=== PATIENT | male | born 1985 | race American Indian/Alaskan Native ===

== ENCOUNTER 2016-12-19 18:18 | Emergency (ER) | payer OTHER ==
[2016-12-19 18:57] VITALS: BP 130/84; PULSE 65; RESP 18; TEMP 98.6; O2SAT 100
[2016-12-19] MEDS ORDERED: TDAP Vaccine 0.5 mL Syr IM ONE ×2 (19:48→20:27)
--- NOTE | 2016-12-19 20:15 | ED PDOC ---
HPI: General Adult Time Seen by Provider: 12/19/16 19:08 Chief Complaint (Nursing): Abnormal Skin Integrity Chief Complaint (Provider): Abrasions on Left hand History Per: Patient History/Exam Limitations: no limitations Current Symptoms Are (Timing): Still Present Additional Complaint(s): Mario Dickinson is a 31 year old male that presents to the ED with a chief complaint of abrasions to his left hand that he obtained when his hand scraped against a piece of metal while he was picking something up at work. Last tetanus shot was in 2009. Past Medical History Reviewed: Historical Data, Nursing Documentation, Vital Signs Vital Signs: Last Vital Signs Temp 98.6 F 12/19/16 18:54 Pulse 65 12/19/16 18:54 Resp 18 12/19/16 18:54 BP 130/84 12/19/16 18:54 Pulse Ox 100 12/19/16 20:20 - Family History Family History: States: Unknown Family Hx - Allergies Allergies/Adverse Reactions: Allergies Allergy/AdvReac Type Severity Reaction Status Date / Time No Known Allergies Allergy Verified 12/19/16 18:57 Review of Systems ROS Statement: Except As Marked, All Systems Reviewed And Found Negative Musculoskeletal: Positive for: Hand Pain (left hand abrasions) Physical Exam - Reviewed Nursing Documentation Reviewed: Yes Vital Signs Reviewed: Yes - Physical Exam Appears: Positive for: Non-toxic, No Acute Distress Head Exam: Positive for: ATRAUMATIC, NORMOCEPHALIC Skin: Positive for: Normal Color, Warm Eye Exam: Positive for: Normal appearance, EOMI, PERRL Extremity: Positive for: Normal ROM (full ROM left hand), Other (Abrasions along knuckles of third, fourth, and fifth digits of left hand. No active bleeding.). Negative for: Swelling (no swelling in joints) Neurologic/Psych: Positive for: Alert, Oriented - ECG O2 Sat by Pulse Oximetry: 100 (RA) Pulse Ox Interpretation: Normal Medical Decision Making Medical Decision Making: Impression: Abrasions along Knuckles of Third, Fourth, and Fifth Digits of Left Hand * Tetanus Booster Patient soaked left hand in betadine solution for 10 minutes. Directly applied antibiotic ointment and dressing. Patient stable for discharge home. Scribe Attestation: Documented by Lisa Blanco, acting as a scribe for Aide Francis PA-C. Provider Scribe Attestation: All medical record entries made by the Scribe were at my direction and personally dictated by me. I have reviewed the chart and agree that the record accurately reflects my personal performance of the history, physical exam, medical decision making, and the department course for this patient. I have also personally directed, reviewed, and agree with the discharge instructions and disposition. Disposition - Clinical Impression Clinical Impression: Tetanus toxoid vaccination administered at current visit, Abrasion - Patient ED Disposition Is Patient to be Admitted: No Counseled Patient/Family Regarding: Diagnosis, Need For Followup - Disposition Referrals: [facility] [Outside] Disposition: Routine/Home Disposition Time: 21:00 Condition: GOOD Instructions: Abrasion (ED)
== END 2016-12-19 22:25 | disposition home or self-care (01) ==
LOC: H.ER 18:18
DX: T14.8 Other injury of unspecified body region (principal); W22.8XXA Striking against or struck by other objects, initial encounter; Y99.0 Civilian activity done for income or pay